=== PATIENT | male | born 1950 | race Caucasian/White ===

== ENCOUNTER 2016-10-17 16:58 | Inpatient (IN) | payer MEDICARE ==
[~2016-10-17] VITALS: Ht 175.3 cm; Wt 60.9 kg
[2016-10-17] VITALS (11 sets, daily range): BP systolic 101–134; BP diastolic 56–60; PULSE 78–93; RESP 16–19; TEMP 98.1–98.5; O2SAT 93–100
[2016-10-17] MEDS ORDERED: SODIUM CHLOR 0.9% 1000 ML INJ 1,000 ML IV SCH (17:16)
--- NOTE | 2016-10-17 17:29 | PD ---
HPI Chief Complaint: GI Complaint Time Seen by Provider: 17:16 Travel History International Travel<30 days: No Contact w/Intl Traveler<30days: No Traveled to known affect area: No History of Present Illness HPI Patient is a 65 year old male with hx of pancreatic cancer and lung cancer who presents to the emergency room with c/o of GI bleed. Patient reports that he is here from [facility] on vacation for the whole month. Reports that he felt fine all day yesterday. Reports that he slept in bed all day today as he was feeling weak. Reports that he has history of pancreatic cancer with mets to his lungs diagnosed 2 years ago. Reports that his lung cancer is advanced and there is no surgical intervention for him. He has undergone chemotherapy as well as radiation treatment for his cancer. Patient is being treated by Dr. Langford in [facility] at [facility]. Patient reports that prior to coming to the emergency room , he began to feel nauseous. Patient reports that he began to vomit and vomited bright red blood. Patient also reports that he has noticed dark melanotic stools. Reports that has been feeling light headed and dizzy. PFSH Past Medical History Chemotherapy: Yes Diabetes: Yes Respiratory: Yes (COPD, LUNG CA) Social History Tobacco Use: No Allergies-Medications (Allergen,Severity, Reaction): Coded Allergies: No Known Allergies (Unverified , 10/17/16) Reported Meds & Prescriptions Reported Meds & Active Scripts Active Reported Oxycodone (Oxycodone HCl) 10 Mg Tab 10 Mg PO Q6HR Creon (Pancrelipase) 36,000-114,000-180,000 Units Cap 2 Cap PO TID Take with each meal Xopenex Hfa 15 GM Inh (Levalbuterol 15 GM Inh) 45 Mcg/Act Aer 2 Puff INH Q4HR PRN Shake well before using. (1 puff = 45 mcg) Spiriva Handihaler (Tiotropium Inh) 18 Mcg Cap 18 Mcg INH DAILY 1 capsule = 18 mcg Zocor (Simvastatin) 20 Mg Tab 20 Mg PO DAILY One Daily (Multiple Vitamin) 1 Tab 1 Tab PO DAILY Omeprazole 20 Mg Tab 20 Mg PO DAILY Glucophage XR (Metformin HCl) 500 Mg Gurpreet 500 Mg PO DAILY With evening meal Carac (Fluorouracil (Topical)) 0.5 % Cre 1 Applic TOP BID Apply to flaky lesion on the scalp until erosion of the lesion occurs Daliresp (Roflumilast) 500 Mcg Tab 500 Mcg PO DAILY Celexa (Citalopram Hydrobromide) 40 Mg Tab 40 Mg PO DAILY Advair Diskus Inh (Fluticasone-Salmeterol Inh) 500-50 Mcg/Blist Aer 1 Puff INH BID Rinse mouth after use. Review of Systems General / Constitutional: No: Fever Eyes: No: Visual changes HENT: No: Headaches Cardiovascular: No: Chest Pain or Discomfort Respiratory: Positive: Cough, Shortness of Breath Gastrointestinal: Positive: Nausea, Vomiting, Abdominal Pain, Hematemesis, No : Hematochezia Genitourinary: No: Dysuria Musculoskeletal: No: Pain Skin: No Rash Neurologic: No: Weakness Psychiatric: No: Depression Endocrine: No: Polydipsia Hematologic/Lymphatic: No: Easy Bruising Physical Exam Narrative GENERAL: Moderate distress SKIN: Warm and dry. Patient jaundiced appearing HEAD: Atraumatic. Normocephalic. EYES: Pupils equal and round. No scleral icterus. No injection or drainage. ENT: No nasal bleeding or discharge. Mucous membranes pink and moist. NECK: Trachea midline. No JVD. CARDIOVASCULAR: Regular rate and rhythm. No murmur appreciated. RESPIRATORY: No accessory muscle use. Clear to auscultation. Breath sounds equal bilaterally. GASTROINTESTINAL: Abdomen soft, non-tender, nondistended. Patient with melanotic stool, grossly heme positive MUSCULOSKELETAL: No obvious deformities. No clubbing. No cyanosis. No edema. NEUROLOGICAL: Awake and alert. No obvious cranial nerve deficits. Motor grossly within normal limits. Normal speech. PSYCHIATRIC: Appropriate mood and affect; insight and judgment normal. Data Data Last Documented VS Vital Signs Date Time Temp Pulse Resp B/P Pulse Ox O2 Delivery O2 Flow Rate FiO2 10/17/16 17:23 19 95 Nasal Cannula 2 10/17/16 17:03 98.1 93 134/58 Orders Electrocardiogram (10/17/16 ) Complete Blood Count With Diff (10/17/16 17:16) Comprehensive Metabolic Panel (10/17/16 17:16) Lipase (10/17/16 17:16) Prothrombin Time / Inr (Pt) (10/17/16 17:16) Act Partial Throm Time (Ptt) (10/17/16 17:16) Urinalysis - C+S If Indicated (10/17/16 17:16) Type And Screen (10/17/16 17:16) Chest, Single Ap (10/17/16 17:16) Ecg Monitoring (10/17/16 17:16) Iv Access Insert/Monitor (10/17/16 17:16) Ng Gastric Tube Insert/Monitor (10/17/16 17:16) Oximetry (10/17/16 17:16) Ondansetron Inj (Zofran Inj) (10/17/16 17:30) Sodium Chlor 0.9% 1000 Ml Inj (Ns 1000 M (10/17/16 17:16) Sodium Chloride 0.9% Flush (Ns Flush) (10/17/16 17:30) Pantoprazole Inj (Protonix Inj) (10/17/16 17:30) Pantoprazole Inj (Protonix Inj) (10/17/16 17:30) Lactic Acid Sepsis Protocol (10/17/16 17:16) B-Type Natriuretic Peptide (10/17/16 17:47) Ckmb (Isoenzyme) Profile (10/17/16 17:47) Troponin I (10/17/16 17:47) Admit Order (Ed Use Only) (10/17/16 18:42) Labs Laboratory Tests Test 10/17/16 17:40 White Blood Count 11.2 TH/MM3 Red Blood Count 4.09 MIL/MM3 Hemoglobin 11.4 GM/DL Hematocrit 33.6 % Mean Corpuscular Volume 82.3 FL Mean Corpuscular Hemoglobin 27.8 PG Mean Corpuscular Hemoglobin 33.8 % Concent Red Cell Distribution Width 21.4 % Platelet Count 236 TH/MM3 Mean Platelet Volume 7.4 FL Neutrophils (%) (Auto) 83.0 % Lymphocytes (%) (Auto) 7.4 % Monocytes (%) (Auto) 7.5 % Eosinophils (%) (Auto) 1.7 % Basophils (%) (Auto) 0.4 % Neutrophils # (Auto) 9.3 TH/MM3 Lymphocytes # (Auto) 0.8 TH/MM3 Monocytes # (Auto) 0.8 TH/MM3 Eosinophils # (Auto) 0.2 TH/MM3 Basophils # (Auto) 0.0 TH/MM3 CBC Comment AUTO DIFF Differential Comment AUTO DIFF CONFIRMED Platelet Estimate NORMAL Platelet Morphology Comment NORMAL Ovalocytes 1+ Prothrombin Time 13.8 SEC Prothromb Time International 1.2 RATIO Ratio Activated Partial 28.5 SEC Thromboplast Time Sodium Level 139 MEQ/L Potassium Level 4.4 MEQ/L Chloride Level 104 MEQ/L Carbon Dioxide Level 26.8 MEQ/L Anion Gap 8 MEQ/L Blood Urea Nitrogen 15 MG/DL Creatinine 0.88 MG/DL Estimat Glomerular Filtration 87 ML/MIN Rate Random Glucose 108 MG/DL Lactic Acid Level 2.4 mmol/L Calcium Level 7.8 MG/DL Total Bilirubin 3.2 MG/DL Aspartate Amino Transf 156 U/L (AST/SGOT) Alanine Aminotransferase 240 U/L (ALT/SGPT) Alkaline Phosphatase 358 U/L Total Creatine Kinase 27 U/L Troponin I LESS THAN 0.02 NG/ML B-Type Natriuretic Peptide 110 PG/ML Total Protein 5.8 GM/DL Albumin 2.4 GM/DL Lipase 31 U/L Blood Type A NEGATIVE Antibody Screen NEGATIVE Blood Bank Comment Crossmatch Leukocyte-Reduced Red Blood Cells MDM Medical Decision Making Medical Screen Exam Complete: Yes Emergency Medical Condition: Yes Interpretation(s) EKG: NSR at 86bpm, qt/qtc: 341/385, no acute st seg chagnes, gt wave inversion V1-V4 Vital Signs Date Time Temp Pulse Resp B/P Pulse Ox O2 Delivery O2 Flow Rate FiO2 10/17/16 17:23 19 95 Nasal Cannula 2 10/17/16 17:17 19 10/17/16 17:03 98.1 93 19 134/58 95 Differential Diagnosis GI bleed, gastric ulcer, gastritis, metastatic disease, electrolyte abnormality Narrative Course Patient is a 65-year-old male with history of metastatic pancreatic cancer to the lungs, presents to emergency room with GI bleed. Patient reports that he has been feeling weak all day, reports that prior to coming to the emergency room, he felt nauseous and began vomiting bright red blood. Patient reports that he has had episodes of melena as well. Denies history of GI been in the past. Patient was hypotensive upon evaluation by EMS, patient was given an 800 mL bolus of IV fluids and blood pressure now 134/58. VSS Placed on a cardiac catheterization technician. IV placed, labs ordered as well as type and screen. Protonix bolus as well as gtt ordered. Gastric lavage ordered as well Patient hypotensive with systolic blood pressure in the 90s, 1 unit of blood ordered for patient. Case reviewed with with GI, request that patient be kept nothing by mouth for EGD tomorrow morning. Case reviewed with Dr. Sorto who accepts case under Dr. Chaudhry. All labs and all studies and plan of care was reviewed with patient and family in detail. Patient is a FULL CODE Critical Care Narrative Aggregate critical care time was 45 minutes. Time to perform other separately billable procedures was not included in the critical care time. My time did not include minutes spent treating any other patients simultaneously or on activities that did not directly contribute to the patient's treatment. The services I provided to this patient were to treat and/or prevent clinically significant deterioration that could result in: , decompensation, deterioration I provided critical care services requiring my management, as noted below: Chart data review, documentation time, medication orders and management, vital sign assessments/reviewing monitor data, ordering and reviewing lab tests, ordering and interpreting/reviewing x-rays and diagnostic studies, care of the patient and discussion of the patient with the admitting physicians. Diagnosis Primary Impression: GI bleed Qualified Code: K92.0 - Gastrointestinal hemorrhage with hematemesis Admitting Information Admitting Physician Requests: Admit Scripts Pantoprazole (Protonix)40 Mg Tab40 Mg PO DAILY #30 TAB Ref 0 Prov:Adry Sorto MD R2 10/19/16 Consuelo Sutton DO Oct 17, 2016 17:29
[2016-10-17] MEDS ORDERED: ONDANSETRON HCL 4 MG/2 ML VIAL IVP ONE (17:30)
[2016-10-17] MEDS ORDERED: PANTOPRAZOLE INJ 80 MG in SODIUM CHLORIDE 0.9% INJ 35 ML IV ONE (17:30)
[2016-10-17] MEDS ORDERED: PANTOPRAZOLE INJ 80 MG in SODIUM CHLORIDE 0.9% INJ 100 ML IV SCH (17:30)
[2016-10-17] MEDS ORDERED: SODIUM CHLORIDE 0.9% FLUSH 5 ML FLUSH IVF PRN (17:30)
[2016-10-17] MEDS ORDERED: ASPI1TAB91 PO (17:33)
[2016-10-17] MEDS ORDERED: CARA0.5C TOP (17:33)
[2016-10-17] MEDS ORDERED: XOPEAER4 INH (17:33)
[2016-10-17] MEDS ORDERED: CARD120T4 PO (17:33)
[2016-10-17] MEDS ORDERED: GLUCTAB PO (17:33)
[2016-10-17] MEDS ORDERED: SPIRCAP INH (17:33)
[2016-10-17] MEDS ORDERED: MULT-207 PO (17:33)
[2016-10-17] MEDS ORDERED: ROFL1TAB2 PO (17:33)
[2016-10-17] MEDS ORDERED: PANC3600 PO (17:33)
[2016-10-17] MEDS ORDERED: ZOCO20TA PO (17:33)
[2016-10-17] MEDS ORDERED: CELE40TA PO (17:33)
[2016-10-17] MEDS ORDERED: OXYC-395 PO (17:33)
[2016-10-17] MEDS ORDERED: ADVA500A INH (17:33)
[2016-10-17] MEDS ORDERED: OMEP20TA PO (17:33)
[2016-10-17 18:26] LABS: AUTOMATED NEUTROPHIL # 9.3 TH/MM3 (1.8-7.7); BASOPHIL % 0.4 % (0.0-2.0); EOSINOPHIL # 0.2 TH/MM3 (0-0.4); EOSINOPHIL % 1.7 % (0.0-4.0); HEMATOCRIT 33.6 % (39.0-51.0); LYMPH % 7.4 % (9.0-44.0); LYMPHOCYTE # 0.8 TH/MM3 (1.0-4.8); MEAN CELL VOLUME 82.3 FL (80.0-100.0); MEAN CORPUSCULAR HEMOGLOBIN 27.8 PG (27.0-34.0); MEAN CORPUSCULAR HGB CONC 33.8 % (32.0-36.0); MONO % 7.5 % (0.0-8.0); PLATELET COUNT 236 TH/MM3 (150-450); RED BLOOD COUNT 4.09 MIL/MM3 (4.50-5.90); RED CELL DISTRIBUTION WIDTH 21.4 % (11.6-17.2); WHITE BLOOD COUNT 11.2 TH/MM3 (4.0-11.0)
[2016-10-17 18:28] LABS: HEMO FLAGS AUTO DIFF
[2016-10-17 18:40] LABS: APTT (PATIENT) 28.5 SEC (24.3-30.1); INTERNATIONAL NORMALIZED RATIO 1.2 RATIO; PROTHROMBIN TIME - PATIENT 13.8 SEC (9.8-11.6)
[2016-10-17 18:41] LABS: ANION GAP 8 MEQ/L (5-15); AST (GOT) 156 U/L (15-37); BICARBONATE 26.8 MEQ/L (21.0-32.0); BLOOD UREA NITROGEN 15 MG/DL (7-18); CHLORIDE 104 MEQ/L (98-107); GLOMERULAR FILTRATION RATE 87 ML/MIN (>89); POTASSIUM 4.4 MEQ/L (3.5-5.1); SODIUM (NA) 139 MEQ/L (136-145)
[2016-10-17 18:44] LABS: ALKALINE PHOSPHATASE 358 U/L (45-117); ALT (GPT) 240 U/L (12-78); TOTAL BILIRUBIN ADULT 3.2 MG/DL (0.2-1.0)
[2016-10-17] MEDS ORDERED: SODIUM CHLOR 0.9% 250 ML INJ 250 ML IV ONE (18:45)
--- NOTE | 2016-10-17 18:51 | RADRPT ---
EXAM DATE/TIME: 10/17/2016 17:37 [facility] COMPARISON: No previous studies available for comparison. INDICATIONS : Chronic cough MEDICAL HISTORY : None. SURGICAL HISTORY : None. ENCOUNTER: Initial ACUITY: 1 day PAIN SCORE: 0/10 LOCATION: Bilateral chest FINDINGS: There is severe bullous emphysema. Densities overlying the upper lungs are believed to represent skin folds. No definite pneumothorax. There is basilar mostly linear opacity at the lung bases probably r epresenting atelectasis and scarring with some focal consolidation also at the right base. Blunting o f the costophrenic angles also present. CONCLUSION: 1. Severe bullous emphysema. Basilar scarring with questionable acute infiltrate right lung base. No prior study for comparison. Small right effusion versus scarring. Left-sided port or central line pre sent with tip in superior vena cava. Chidi Diaz MD on October 17, 2016 at 18:46 Board Certified Radiologist. This report was verified electronically.
[2016-10-17 18:54] LABS: OVALOCYTES 1+ (NORMAL); PLATELET ESTIMATE SMEAR NORMAL (NORMAL); PLATELET MORPHOLOGY NORMAL (NORMAL); SCAN/DIFF AUTO DIFF CONFIRMED
[2016-10-17 19:27] LABS: CREATINE KINASE 27 U/L (39-308)
--- NOTE | 2016-10-17 19:57 | HHI.HP ---
[facility] Service Family Medicine Primary Care Physician Non-Staff Admission Diagnosis GI BLEED Diagnoses: International Travel<30 Days: No Contact w/Intl Traveler<30days: No Known Affected Area: No History of Present Illness Patient is a 65-year-old male with past medical history significant for pancreatic cancer with lung metastasis, COPD presenting due to bright red vomiting. This afternoon around 1 PM patient experienced 2 episodes of vomiting bright red blood with clots. He denies any chest pain associated with vomiting. He also experienced bright red blood in his stools. He has experienced some associated abdominal discomfort. He feels fatigued but denies feeling lightheaded or dizzy. He denies this ever happening before. Patient was diagnosed with pancreatic cancer in 2014 and has been undergoing radiation and chemotherapy treatments. Cancer was found to have metastasized to his lungs. His last chemotherapy treatment was in June or July and his last radiation treatment was in the summer. Patient is being treated by Dr. Langford in [facility] at [facility]. He is currently taking a break from cancer treatments while here on vacation from [facility]. He will not miss any treatments while in the hospital. He has a history of COPD and is short of breath at baseline. He uses oxygen at home, 2 L nasal cannula. (Adry Sorto MD R2) Review of Systems Constitutional: COMPLAINS OF: Diaphoretic episodes Eyes: DENIES: Double Vision Ears, nose, mouth, throat: DENIES: Vertigo Respiratory: COMPLAINS OF: Cough, Shortness of breath Cardiovascular: COMPLAINS OF: Lower Extremity Edema, DENIES: Chest pain, Syncope Gastrointestinal: COMPLAINS OF: Abdominal pain, Bloody stools, Nausea, Vomiting Genitourinary: DENIES: Dysuria Musculoskeletal: COMPLAINS OF: Muscle aches Integumentary: DENIES: Rash Neurologic: DENIES: Headache Psychiatric: DENIES: Mood changes (Adry Sorto MD R2) Past Family Social History Past Medical History Pancreatic Cancer diagnosed November 2014 COPD DM type 2 Hyperlipidemia Tachycardia Past Surgical History Appendectomy as a child Nerve entrapment of left hand, required surgery Pancreatic stent, preformed twice Biopsy of lung x2 Port placement in 2014 Reported Medications Reported Meds & Active Scripts Active Reported Oxycodone (Oxycodone HCl) 10 Mg Tab 10 Mg PO Q6HR Creon (Pancrelipase) 36,000-114,000-180,000 Units Cap 2 Cap PO TID Take with each meal Cardizem (Diltiazem HCl) 120 Mg Tab 120 Mg PO DAILY Xopenex Hfa 15 GM Inh (Levalbuterol 15 GM Inh) 45 Mcg/Act Aer 2 Puff INH Q4HR PRN Shake well before using. (1 puff = 45 mcg) Spiriva Handihaler (Tiotropium Inh) 18 Mcg Cap 18 Mcg INH DAILY 1 capsule = 18 mcg Zocor (Simvastatin) 20 Mg Tab 20 Mg PO DAILY One Daily (Multiple Vitamin) 1 Tab 1 Tab PO DAILY Omeprazole 20 Mg Tab 20 Mg PO DAILY Glucophage XR (Metformin HCl) 500 Mg Gurpreet 500 Mg PO DAILY With evening meal Carac (Fluorouracil (Topical)) 0.5 % Cre 1 Applic TOP BID Apply to flaky lesion on the scalp until erosion of the lesion occurs Daliresp (Roflumilast) 500 Mcg Tab 500 Mcg PO DAILY Celexa (Citalopram Hydrobromide) 40 Mg Tab 40 Mg PO DAILY Aspirin Adult Low Strength (Aspirin) 81 Mg Tabdr 81 Mg PO DAILY Advair Diskus Inh (Fluticasone-Salmeterol Inh) 500-50 Mcg/Blist Aer 1 Puff INH BID Rinse mouth after use. (Ardy Sorto MD R2) Allergies: Coded Allergies: No Known Allergies (Unverified , 10/17/16) Active Ordered Medications Inpatient Medications Amylase/Lipase/ Protease (Creon 2476-120) 2 cap TID PO Digestive Aid; Start 10/18/16 at 09:00 Budesonide/ Formoterol Fumarate (Symbicort 160-4.5 Inh) 2 puff BID INH Last administered on 10/17/16 21:21; Start 10/17/16 at 21:00 Citalopram Hydrobromide (CeleXA) 40 mg DAILY PO ; Start 10/18/16 at 09:00 IV Flush (NS Flush) 2 ml UNSCH PRN FLUSH FLUSH AFTER USING IV ACCESS; Start 10/17/16 at 20:00 IV Flush 2 ml 2 ml BID FLUSH ; Start 10/17/16 at 21:00 Multivitamins (Theragran) 1 tab DAILY PO ; Start 10/18/16 at 09:00 Ondansetron HCl 4 mg 4 mg ONCE ONCE IVP Last administered on 10/17/16 17:30; Start 10/17/16 at 17:30; Stop 10/17/16 at 17:31; Status DC Oxycodone HCl (Roxicodone) 10 mg Q6HR PO ; Start 10/18/16 at 00:00 Pantoprazole Sodium (Protonix Inj) 40 mg BID IV ; Start 10/17/16 at 21:00 Pantoprazole Sodium (Protonix) 20 mg DAILY PO ; Start 10/18/16 at 09:00; Stop 10/18/16 at 09:00; Status DC Pantoprazole Sodium 80 mg/ Sodium Chloride 100 ml @ 10 mls/hr Q10H IV Last administered on 10/17/16 17:30; Start 10/17/16 at 17:30; Stop 10/17/16 at 20:14; Status DC Pravastatin Sodium (Pravachol) 40 mg DAILY PO CM; Start 10/18/16 at 09:00 Roflumilast (Daliresp) 500 mcg DAILY PO ; Start 10/18/16 at 09:00 Sodium Chloride (NS 1000 ml Inj) 1,000 ml @ 125 mls/hr Q8H IV Last administered on 10/17/16 20:32; Start 10/17/16 at 19:58 Sodium Chloride (NS 250 ml Inj) 250 ml @ 15 mls/hr ONCE ONCE IV Last administered on 10/17/16 21:00; Start 10/17/16 at 18:45; Stop 10/18/16 at 11:24 Tiotropium [place] (Spiriva Inh) 18 mcg DAILY INH ; Start 10/18/16 at 09:00 Family History Mother:DM, living 86 Father: Heart problems, at 73 Social History Currently lives in [facility]. 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 SKIN: No rashes, ecchymoses or lesions. Cool and dry. Port present in upper left chest. HEAD: Atraumatic. Normocephalic. No temporal or scalp tenderness. EYES: Pupils equal round and reactive. Extraocular motions intact. No scleral icterus. No injection or drainage. ENT: Nose without bleeding, purulent drainage or septal hematoma. Throat without erythema, tonsillar hypertrophy or exudate. Uvula midline. Airway patent. NECK: Trachea midline. No JVD or lymphadenopathy. Supple, nontender, no meningeal signs. CARDIOVASCULAR: Regular rate and rhythm without murmurs, gallops, or rubs. RESPIRATORY: Poor air movement. Decreased breath sounds at lung bases. Occasional expiratory wheezes. GASTROINTESTINAL: Abdomen soft, non-tender, nondistended. No hepato-splenomegaly , or palpable masses. No guarding. Positive bowel sounds MUSCULOSKELETAL: Extremities without clubbing, cyanosis, or edema. No joint tenderness, effusion, or edema noted. No calf tenderness. Negative Homans sign bilaterally. NEUROLOGICAL: Awake and alert. Cranial nerves II through XII intact. Motor and sensory grossly within normal limits. Five out of 5 muscle strength in all muscle groups. Normal speech. Laboratory Laboratory Tests Test 10/17/16 17:40 White Blood Count 11.2 Red Blood Count 4.09 Hemoglobin 11.4 Hematocrit 33.6 Mean Corpuscular Volume 82.3 Mean Corpuscular Hemoglobin 27.8 Mean Corpuscular Hemoglobin 33.8 Concent Red Cell Distribution Width 21.4 Platelet Count 236 Mean Platelet Volume 7.4 Neutrophils (%) (Auto) 83.0 Lymphocytes (%) (Auto) 7.4 Monocytes (%) (Auto) 7.5 Eosinophils (%) (Auto) 1.7 Basophils (%) (Auto) 0.4 Neutrophils # (Auto) 9.3 Lymphocytes # (Auto) 0.8 Monocytes # (Auto) 0.8 Eosinophils # (Auto) 0.2 Basophils # (Auto) 0.0 CBC Comment AUTO DIFF Differential Comment AUTO DIFF CONFIRMED Platelet Estimate NORMAL Platelet Morphology Comment NORMAL Ovalocytes 1+ Prothrombin Time 13.8 Prothromb Time International 1.2 Ratio Activated Partial 28.5 Thromboplast Time Sodium Level 139 Potassium Level 4.4 Chloride Level 104 Carbon Dioxide Level 26.8 Anion Gap 8 Blood Urea Nitrogen 15 Creatinine 0.88 Estimat Glomerular Filtration 87 Rate Random Glucose 108 Lactic Acid Level 2.4 Calcium Level 7.8 Total Bilirubin 3.2 Aspartate Amino Transf 156 (AST/SGOT) Alanine Aminotransferase 240 (ALT/SGPT) Alkaline Phosphatase 358 Total Creatine Kinase 27 Troponin I LESS THAN 0.02 B-Type Natriuretic Peptide 110 Total Protein 5.8 Albumin 2.4 Lipase 31 Blood Type A NEGATIVE Antibody Screen NEGATIVE Crossmatch Leukocyte-Reduced Red Blood Cells Blood Bank Comment (Adry Sorto MD R2) Result Diagram: 10/17/16173910/17/161739 Assessment and Plan Assessment and Plan Patient is a 65-year-old male with past medical history significant for pancreatic cancer with lung metastasis, COPD presenting due to bright red vomiting. Code Status Full Discussed Condition With dw Dr. Sutton w Medicine Team (Adry Sorto MD R2) Attending Attestation THIS CASE WAS DISCUSSED WITH THE RESIDENT PHYSICIANS. I HAVE REVIEWED THE RECORD AND AGREE WITH THE ABOVE NOTE AND PLAN OF CARE WAS DISCUSSED. I HAVE AUTHORIZED THE ORDER FOR ADMISSION TO AN IN-PATIENT STATUS. (Davey Chaudhry MD) Problem List: (1) GI bleed Status: Acute Plan: Patient reports 2 episodes of bright red vomiting earlier today along with grossly bloody stools. On admission H&H stable at 11.4 and 33.6. -GI consulted by ED physician, appreciate recommendations and intervention -Patient to remain nothing by mouth in anticipation of EGD tomorrow morning -Will monitor H&HQ 6 hours -Protonix 40 mg IV BID -Monitor Q6hr H&H's,on admission stable at 11.4 and 33.6 respectively -Continue to monitor I's and O's -Monitor patient for blood loss -Consider NG-tube placement (2) Pancreatic cancer metastasized to lung Status: Acute Plan: Patient reports history of pancreatic cancer diagnosed in November 2014, now with lung metastasis. Patient is undergoing chemotherapy along with radiation therapy in [place]. He is currently taking a break from cancer treatments and will not miss any cancer treatments while in the hospital -Consider heme/onc consulted after GI bleed is stable -Continue home Creon -Pain management with oxycodone 10 mg po Q6hrs, morphine prn breakthrough (3) FEN/PPX Status: Acute Plan: Fluids: Normal saline at 125 ML/HR Electrolytes: Calculated protein corrected calcium based on albumin 9.2, continue to monitor electrolytes and replete as needed Nutrition: Patient currently nothing by mouth in anticipation of EGD in the morning by GI DVT PPX: Contraindicated as patient currently has GI bleed GI PPX: Protonix 40 mg IV BID Chronic medical problems: Type 2 diabetes: Low-dose insulin sliding scale Hyperlipidemia: Pravastatin 40 mg po daily COPD: Daliresp, Spiriva, Symbicort, DuoNeb's prn SOB Depression: Continue Celexa (Adry Sorto MD R2) Physician Certification 2 Midnight Certification Type: Admission for Inpatient Services Order for Inpatient Services The services are ordered in accordance with Medicare regulations or non- Medicare payer requirements, as applicable. In the case of services not specified as inpatient-only, they are appropriately provided as inpatient services in accordance with the 2-midnight benchmark. Estimated LOS (days): 2 days is the estimated time the patient will need to remain in the hospital, assuming treatment plan goals are met and no additional complications. Post-Hospital Plan: Home (Adry Sorto MD R2) Problem Qualifiers (1) GI bleed: Qualified Code: K92.0 - Gastrointestinal hemorrhage with hematemesis Adry Sorto MD R2 Oct 17, 2016 19:57 Davey Chaudhry MD Oct 18, 2016 11:50
[2016-10-17] MEDS ORDERED: SODIUM CHLORIDE 0.9% FLUSH 5 ML FLUSH FLUSH PRN (20:00)
[2016-10-17 20:20] LABS: LACTIC ACID GHOST NOT REPORTABLE
[2016-10-17] MEDS: SODIUM CHLOR 0.9% 1000 ML INJ 1,000 ML IV SCH (20:32)
[2016-10-17] MEDS: SODIUM CHLORIDE 0.9% FLUSH 5 ML FLUSH FLUSH SCH (21:00)
[2016-10-17] MEDS: PANTOPRAZOLE SODIUM 40 MG VIAL IV SCH (21:00)
[2016-10-17] MEDS: BUDESONIDE-FORMOTEROL 160/4.5 MCG INHALER INH SCH (21:21)
--- NOTE | 2016-10-17 21:23 | RADRPT ---
EXAM DATE/TIME: 10/17/2016 20:28 [facility] COMPARISON: No previous studies available for comparison. INDICATIONS : Abdomen pain; evaluate for Gastrointestinal bleed. ORAL CONTRAST: No oral contrast ingested. RADIATION DOSE: 9.96 CTDIvol (mGy) MEDICAL HISTORY : Carcinoma, pancreas. Carcinoma, lung. SURGICAL HISTORY : None. ENCOUNTER: Initial ACUITY: 1 day PAIN SCALE: 5/10 LOCATION: Bilateral abdomen pain. TECHNIQUE: Volumetric scanning of the abdomen and pelvis was performed. Using automated exposure control and ad justment of the mA and/or kV according to patient size, radiation dose was kept as low as reasonably achievable to obtain optimal diagnostic quality images. FINDINGS: There is patchy airspace consolidation at the right lung base and small right pleural effusion. Moder ate emphysema at the lung bases. There is some pneumobilia in the anterior aspect of the liver. Gallbladder is not visualized. The mcclellan creas is atrophic. There are calcifications around the head of the pancreas. Reportedly there is a hi story of pancreatic carcinoma. Spleen, adrenals, kidneys demonstrate no acute findings. No bowel obstruction. No free air or significant free fluid. No acute bony abnormalities. CONCLUSION: 1. Basilar lung consolidation in the right lower lobe most characteristic of pneumonia or aspiration with small right pleural effusion. Moderate emphysema at the lung bases. 2. Pneumobilia. Gallbladder not visualized. Pancreas very atrophic. No free air or free fluid. No bow el obstruction. Chidi Diaz MD on October 17, 2016 at 21:17 Board Certified Radiologist. This report was verified electronically.
[2016-10-17] MEDS ORDERED: GLUCAGON 1 MG/ML VIAL OTHER PRN (23:30)
[2016-10-17] MEDS ORDERED: DEXTROSE 50% IN WATER 50 ML VIAL(D50) IV PUSH PRN (23:30)
[2016-10-17 23:39] LABS: HEMATOCRIT 31.1 % (39.0-51.0)
[2016-10-17 23:40] LABS: REVIEW FLAG FINAL
[2016-10-18] VITALS (14 sets, daily range): BP systolic 98–123; BP diastolic 56–78; PULSE 59–86; RESP 16–27; TEMP 98.3–98.7; O2SAT 92–99
[2016-10-18] MEDS ORDERED: MORPHINE SULFATE 4 MG/ML INJ IV PUSH PRN (01:00)
[2016-10-18] MEDS ORDERED: RESP: ALBUTEROL 2.5 MG/IPRATROPIUM 0.5 MG NEB (PRN) NEB (01:00)
[2016-10-18] MEDS: SODIUM CHLOR 0.9% 1000 ML INJ 1,000 ML IV SCH ×3 (03:52→19:58)
[2016-10-18] MEDS: INSULIN ASPART SUPPLEMENTAL SCALE SQ SCH ×4 (06:02→20:07)
[2016-10-18 06:05] LABS: AUTOMATED NEUTROPHIL # 4.6 TH/MM3 (1.8-7.7); BASOPHIL % 0.8 % (0.0-2.0); EOSINOPHIL # 0.1 TH/MM3 (0-0.4); EOSINOPHIL % 2.3 % (0.0-4.0); HEMATOCRIT 28.2 % (39.0-51.0); HEMO FLAGS DIFF FINAL; LYMPH % 12.2 % (9.0-44.0); LYMPHOCYTE # 0.8 TH/MM3 (1.0-4.8); MEAN CELL VOLUME 80.8 FL (80.0-100.0); MEAN CORPUSCULAR HEMOGLOBIN 28.2 PG (27.0-34.0); MONO % 11.4 % (0.0-8.0); NEUT % 73.3 % (16.0-70.0); PLATELET COUNT 194 TH/MM3 (150-450); RED BLOOD COUNT 3.49 MIL/MM3 (4.50-5.90); RED CELL DISTRIBUTION WIDTH 19.9 % (11.6-17.2); WHITE BLOOD COUNT 6.2 TH/MM3 (4.0-11.0)
[2016-10-18 06:30] LABS: ALT (GPT) 164 U/L (12-78); ANION GAP 7 MEQ/L (5-15); AST (GOT) 77 U/L (15-37); BICARBONATE 23.6 MEQ/L (21.0-32.0); BLOOD UREA NITROGEN 20 MG/DL (7-18); CHLORIDE 109 MEQ/L (98-107); GLOMERULAR FILTRATION RATE 160 ML/MIN (>89); POTASSIUM 4.2 MEQ/L (3.5-5.1); SODIUM (NA) 140 MEQ/L (136-145)
[2016-10-18 06:32] LABS: ALKALINE PHOSPHATASE 265 U/L (45-117); CALCIUM-PROTEIN CORRECTED 9.2 MG/DL (8.5-10.1); TOTAL BILIRUBIN ADULT 2.2 MG/DL (0.2-1.0)
--- NOTE | 2016-10-18 08:58 | PD.CONS ---
HPI History of Present Illness This is a 66 year old male with past medical history significant for pancreatic cancer with lung metastasis ( diagnosed in 2014 and has been undergoing radiation and chemotherapy treatments. His last chemotherapy treatment was in June or July and his last radiation treatment was in the summer. Patient is being treated by Dr. Langford in [facility]. He is currently taking a break from cancer treatments while here on vacation from [facility]), COPD, DM, permanent pancreatic stent presents with acute onset of bright red vomiting and bright red rectal bleed that started yesterday afternoon. Patient reports 2 episodes of vomiting bright red blood with clots, but non after that. He reports bright red blood in his stools with every BM, last time was 3 am last night. He has experienced some associated abdominal discomfort and fatigue. He has a history of COPD and is short of breath at baseline. He uses oxygen at home, 2 L nasal cannula. No previous history of this. last colonoscopy was 6 years ago, EGD was about 2 years ago. He takes Aspirin at home. Denies NSAIDs or alcohol. hgb 9.9 s/p one unit of blood. CT done 1. Basilar lung consolidation in the right lower lobe most characteristic of pneumonia or aspiration with small right pleural effusion. Moderate emphysema at the lung bases. 2. Pneumobilia. Gallbladder not visualized. Pancreas very atrophic. No free air or free fluid. No bowel obstruction. LFTs elevated, hepatitis panel pending. patient states, he had problems with gallbladder, but left it alone and it was felt he is not a surgical candidate. (Bre Gonzalez) PFSH Past Medical History Past Medical History Pancreatic Cancer with mets to lungs diagnosed November 2014 COPD DM type 2 Hyperlipidemia Tachycardia Past Surgical History Appendectomy as a child Nerve entrapment of left hand, required surgery Pancreatic stent, preformed twice Biopsy of lung x2 Port placement in 2014 EGD/colonoscopy (Bre Gonzalez) Coded Allergies: No Known Allergies (Unverified , 10/17/16) Medications Current Medications Medications (Trade) Dose Ordered Sig/Saloni Route Start Time Stop Time Status Last Admin (NS 250 ml Inj) 250 ml @ 15 mls/hr ONCE ONCE IV 10/17/16 18:45 10/18/16 11:24 10/17/16 21:00 (NS Flush) 2 ml UNSCH PRN FLUSH 10/17/16 20:00 IV Flush 2 ml 2 ml BID FLUSH 10/17/16 21:00 (NS 1000 ml Inj) 1,000 ml @ 125 mls/hr Q8H IV 10/17/16 19:58 10/18/16 03:52 (Protonix Inj) 40 mg BID IV 10/17/16 21:00 (CeleXA) 40 mg DAILY PO 10/18/16 09:00 (Theragran) 1 tab DAILY PO 10/18/16 09:00 (Roxicodone) 10 mg Q6HR PO 10/18/16 00:00 10/18/16 06:02 (Daliresp) 500 mcg DAILY PO 10/18/16 09:00 (Spiriva Inh) 18 mcg DAILY INH 10/18/16 09:00 (Symbicort 160-4.5 Inh) 2 puff BID INH 10/17/16 21:00 10/17/16 21:21 (Creon 24-76-120) 2 cap TID PO 10/18/16 09:00 (Pravachol) 40 mg DAILY PO 10/18/16 09:00 (D50w (Vial) Inj) 25 ml UNSCH PRN IV PUSH 10/17/16 23:30 (Glucagon Inj) 1 mg UNSCH PRN OTHER 10/17/16 23:30 (Morphine Inj) 3 mg Q3H PRN IV PUSH 10/18/16 01:00 Family History Mother:DM, living 86 Father: Heart problems, at 73 Social History 1.5 packs for 50 years Quit drinking in 1986, history of alcohol abuse Marijuana occasionally (Bre Gonzalez) Review of Systems Constitutional: COMPLAINS OF: Fatigue, DENIES: Fever Eyes: DENIES: Double Vision Ears, nose, mouth, throat: DENIES: Hoarseness Respiratory: COMPLAINS OF: Shortness of breath Gastrointestinal: COMPLAINS OF: Abdominal pain, Bloody stools, Nausea, Vomiting , Heartburn, Hematemesis, DENIES: Black stools, Constipation, Diarrhea, Difficulty Swallowing, Anorexia, Odynophagia, Swelling of Abdomen Genitourinary: DENIES: Hematuria Musculoskeletal: DENIES: Neck pain Integumentary: DENIES: Jaundice Hematologic/lymphatic: DENIES: Bruising Immunologic/allergic: DENIES: Eczema Neurologic: DENIES: Abnormal gait Psychiatric: DENIES: Anxiety (Bre Gonzalez) GI Exam Vitals I&O Vital Signs Date Time Temp Pulse Resp B/P Pulse Ox O2 Delivery O2 Flow Rate FiO2 10/18/16 06:47 16 10/18/16 06:18 71 16 116/56 98 Nasal Cannula 4 10/18/16 05:00 71 16 108/58 99 Nasal Cannula 4 10/18/16 03:00 72 16 106/57 99 Nasal Cannula 4 10/18/16 01:03 77 16 102/56 99 Nasal Cannula 4 10/18/16 00:07 98.5 76 16 98/58 99 Nasal Cannula 4 10/17/16 23:00 98.4 86 16 120/57 99 Nasal Cannula 4 10/17/16 22:16 99 Nasal Cannula 4.00 10/17/16 22:02 98.4 78 16 104/58 99 Nasal Cannula 4 10/17/16 22:00 79 16 104/60 99 Nasal Cannula 4 10/17/16 21:27 98.5 85 16 101/56 99 Nasal Cannula 4 10/17/16 21:15 98.5 80 16 104/57 99 Nasal Cannula 4 10/17/16 21:05 81 16 103/57 100 Nasal Cannula 4 10/17/16 20:58 98.4 81 16 104/58 99 Nasal Cannula 4 10/17/16 19:35 93 16 101/58 93 Nasal Cannula 4 10/17/16 17:23 19 95 Nasal Cannula 2 10/17/16 17:17 19 10/17/16 17:03 98.1 93 19 134/58 95 Imaging Last Impressions Abdomen/Pelvis CT 10/17/16 1847 Signed Impressions: Service Date/Time: Monday, October 17, 2016 20:28 - CONCLUSION: 1. Basilar lung consolidation in the right lower lobe most characteristic of pneumonia or aspiration with small right pleural effusion. Moderate emphysema at the lung bases. 2. Pneumobilia. Gallbladder not visualized. Pancreas very atrophic. No free air or free fluid. No bowel obstruction. Chidi Diaz MD Chest X-Ray 10/17/16 1716 Signed Impressions: Service Date/Time: Monday, October 17, 2016 17:37 - CONCLUSION: 1. Severe bullous emphysema. Basilar scarring with questionable acute infiltrate right lung base. No prior study for comparison. Small right effusion versus scarring. Left-sided port or central line present with tip in superior vena cava. Chidi Diaz MD Laboratory Test 10/17/16 10/17/16 10/17/16 10/18/16 17:40 20:10 23:30 05:41 White Blood Count 11.2 TH/MM3 6.2 TH/MM3 Red Blood Count 4.09 MIL/MM3 3.49 MIL/MM3 Hemoglobin 11.4 GM/DL 10.5 GM/DL 9.9 GM/DL Hematocrit 33.6 % 31.1 % 28.2 % Mean Corpuscular Volume 82.3 FL 80.8 FL Mean Corpuscular Hemoglobin 27.8 PG 28.2 PG Mean Corpuscular Hemoglobin 33.8 % 35.0 % Concent Red Cell Distribution Width 21.4 % 19.9 % Platelet Count 236 TH/MM3 194 TH/MM3 Mean Platelet Volume 7.4 FL 6.8 FL Neutrophils (%) (Auto) 83.0 % 73.3 % Lymphocytes (%) (Auto) 7.4 % 12.2 % Monocytes (%) (Auto) 7.5 % 11.4 % Eosinophils (%) (Auto) 1.7 % 2.3 % Basophils (%) (Auto) 0.4 % 0.8 % Neutrophils # (Auto) 9.3 TH/MM3 4.6 TH/MM3 Lymphocytes # (Auto) 0.8 TH/MM3 0.8 TH/MM3 Monocytes # (Auto) 0.8 TH/MM3 0.7 TH/MM3 Eosinophils # (Auto) 0.2 TH/MM3 0.1 TH/MM3 Basophils # (Auto) 0.0 TH/MM3 0.0 TH/MM3 CBC Comment AUTO DIFF DIFF FINAL Differential Comment AUTO DIFF CONFIRMED Platelet Estimate NORMAL Platelet Morphology Comment NORMAL Ovalocytes 1+ Prothrombin Time 13.8 SEC Prothromb Time International 1.2 RATIO Ratio Activated Partial 28.5 SEC Thromboplast Time Sodium Level 139 MEQ/L 140 MEQ/L Potassium Level 4.4 MEQ/L 4.2 MEQ/L Chloride Level 104 MEQ/L 109 MEQ/L Carbon Dioxide Level 26.8 MEQ/L 23.6 MEQ/L Anion Gap 8 MEQ/L 7 MEQ/L Blood Urea Nitrogen 15 MG/DL 20 MG/DL Creatinine 0.88 MG/DL 0.52 MG/DL Estimat Glomerular Filtration 87 ML/MIN 160 ML/MIN Rate Random Glucose 108 MG/DL 78 MG/DL Lactic Acid Level 2.4 mmol/L 2.2 mmol/L Calcium Level 7.8 MG/DL 8.0 MG/DL Total Bilirubin 3.2 MG/DL 2.2 MG/DL Aspartate Amino Transf 156 U/L 77 U/L (AST/SGOT) Alanine Aminotransferase 240 U/L 164 U/L (ALT/SGPT) Alkaline Phosphatase 358 U/L 265 U/L Total Creatine Kinase 27 U/L Troponin I LESS THAN 0.02 NG/ML B-Type Natriuretic Peptide 110 PG/ML Total Protein 5.8 GM/DL 5.1 GM/DL Albumin 2.4 GM/DL 2.2 GM/DL Lipase 31 U/L Blood Type A NEGATIVE A NEGATIVE Antibody Screen NEGATIVE Crossmatch Leukocyte-Reduced Red Blood Cells Blood Bank Comment Protein Corrected Calcium 9.2 MG/DL Physical Examination HEENT: Pupils round and reactive to light; normocephalic; atraumatic; no jaundice. Throat is clear. NECK: Neck is supple, no JVD, no lymphadenopathy. CHEST: Decreased breath sounds at lung bases. Expiratory wheezes CARDIAC: Regular rate and rhythm with no murmur gallop or rubs. ABDOMEN: Soft, nondistended, nontender; no hepatosplenomegaly; bowel sounds are present in all four quadrants. EXTREMITIES: No clubbing, cyanosis, or edema. SKIN: Normal; no rash; no jaundice. 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 (Bre Gonzalez) Assessment and Plan Plan - GI bleed- 2 episodes of bright red vomiting yesterday with bloody stools, no more vomiting but the continue to have bloody stools, last one was at 3 am. On admission hgb 11.4 ------>9.9 s/p one unit of blood Hemodynamically stable. last colonoscopy was 6 years ago, EGD was about 2 years ago. He takes Aspirin at home. Denies NSAIDs or alcohol. Noncontrasted CT done 1. Basilar lung consolidation in the right lower lobe most characteristic of pneumonia or aspiration with small right pleural effusion. Moderate emphysema at the lung bases. 2. Pneumobilia. Gallbladder not visualized. Pancreas very atrophic. No free air or free fluid. No bowel obstruction. LFTs elevated, hepatitis panel pending. patient states, he had problems with gallbladder, but left it alone and it was felt he is not a surgical candidate. - Elevated LFTs- Most likely due to chronic etiology compounded by pancreatic cancer and ill gall bladder. denies alcohol intake, hepatitis panel pending, Ct as above, of note he has issues with gallbladder but it was felt he is not a surgical candidate - Pancreatic cancer with lung metastasis ( diagnosed in 2014 and has been undergoing radiation and chemotherapy treatments. His last chemotherapy treatment was in June or July and his last radiation treatment was in the summer. Patient is being treated by Dr. Langford in [facility]. He is currently taking a break from cancer treatments while here on vacation from [facility] - Pancreatic stent- this is permanent - DM, COPD, per attending Plan: - Clear liquids - EGD/colonoscopy in am - NPO mn - Golytely today - Cont. PPI - Monitor hh - Transfuse as needed - Notify GI for active bleeding - Supportive care - Patient seen and examined by Dr. Daly and myself and this note is written on his behalf. (Bre Gonzalez) Physician Comments Seen and examined with [facility]ER, no active bleeding currently. EGD/Colonoscopy planned for tomorrow. Discussed with pt. and family at the bedside. Thank you ( Dong Ayoub MD) Bre Gonzalez Oct 18, 2016 08:58 Dong Ayoub MD Oct 18, 2016 16:21
[2016-10-18] MEDS ORDERED: PANTOPRAZOLE SOD 20 MG DELAYED RELEASE TAB PO SCH (09:00)
[2016-10-18] MEDS: SODIUM CHLORIDE 0.9% FLUSH 5 ML FLUSH FLUSH SCH ×2 (09:00→21:00)
[2016-10-18] MEDS: TIOTROPIUM BROMIDE 18 MCG INH INH SCH (09:02)
[2016-10-18] MEDS: BUDESONIDE-FORMOTEROL 160/4.5 MCG INHALER INH SCH ×2 (09:02→23:08)
[2016-10-18] MEDS: ROFLUMILAST 500 MCG TAB PO SCH (09:03)
[2016-10-18] MEDS: LIPASE/PROTEASE/AMYLASE (24,000/76,000/120,000) CAP PO SCH ×3 (09:03→18:21)
[2016-10-18] MEDS: CITALOPRAM HYDROBROMIDE 40 MG TAB PO SCH (09:03)
[2016-10-18] MEDS: PRAVASTATIN SOD 40 MG TAB PO SCH (09:03)
[2016-10-18] MEDS: MULTIVITAMIN TAB PO SCH (09:03)
[2016-10-18] MEDS: PANTOPRAZOLE SODIUM 40 MG VIAL IV SCH ×2 (09:22→20:07)
[2016-10-18 09:50] LABS: BLOOD, URINE NEG (NEG); COMMENT (UR) CULT NOT INDICATED; CULTURE IF INDICATED CULT NOT INDICATED; GLUCOSE,URINE NEG (NEG); KETONE, URINE 10 mg/dL (NEG); MUCUS URINE FEW /lpf (OCC); NITRITE,URINE NEG (NEG); PH, URINE 5.5 (5.0-8.5); SQUAMOUS EPITHELIAL CELL URINE <1 /hpf (0-5); URINE COLOR DARK-YELLOW (YELLW/STRAW)
[2016-10-18] MEDS ORDERED: CHLORHEXIDINE GLUCONATE 2 % 1 PACK (2 CLOTHS)(extra cloths) TOP PRN (11:15)
--- NOTE | 2016-10-18 11:49 | EKG ---
Date Performed: 10/17/2016 Time Performed: 17:30:40 PTAGE: 65 years EKG: Sinus rhythm RIGHT VENTRICULAR HYPERTROPHY AND ST-T CHANGE ABNORMAL ECG NO PREVIOUS TRACING DOCTOR: Javier Boswell Interpretating Date/Time 10/18/2016 11:45:35
--- NOTE | 2016-10-18 11:49 | HHI.FPPN ---
Subjective Remarks Patient had 3 bowel movements overnight were described as bright red with the last one being at 3 AM. He denies any new episodes of emesis. He states that he is feeling relatively well and he denies symptoms such as abdominal pain, nausea or vomiting, or lightheadedness/dizziness. He did receive 1 unit of packed red blood cells overnight and states that he does feel better today after receiving these. In summary, this is a 65-year-old male presenting to the emergency department with a one-day history of hematemesis and melena/hematochezia. He states that on the day of presentation he began experiencing some epigastric abdominal discomfort associated with fatigue. He then had 2 episodes of emesis that he described as bright red blood with some clots. He also then noticed red blood in his bowel movements as well. He does endorse fatigue and mild abdominal discomfort. He denies any fevers or chills. Denies any dizziness or lightheadedness. Denies any chest pain or palpitations. He has a past medical history significant for pancreatic cancer diagnosed in 2014 associated with lung metastasis for which he has undergone both radiation and chemotherapy treatments. He is being treated in [place] for this, and is currently on a treatment holiday with his last chemotherapy being in June 2016 and radiation being completed over the previous summer. Past Medical History Pancreatic Cancer diagnosed November 2014 COPD DM type 2 Hyperlipidemia Tachycardia Past Surgical History Appendectomy as a child Nerve entrapment of left hand, required surgery Pancreatic stent, preformed twice Biopsy of lung x2 Port placement in 2014 Family History Mother:DM, living 86 Father: Heart problems, at 73 Social History Currently lives in [facility]. 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 Quit drinking in 1986, history of alcohol abuse Marijuana occasionally Objective Vitals Vital Signs Date Time Temp Pulse Resp B/P Pulse Ox O2 Delivery O2 Flow Rate FiO2 10/18/16 09:42 95 Nasal Cannula 4.00 10/18/16 09:23 59 16 123/78 97 Nasal Cannula 4 10/18/16 06:47 16 10/18/16 06:18 71 16 116/56 98 Nasal Cannula 4 10/18/16 05:00 71 16 108/58 99 Nasal Cannula 4 10/18/16 03:00 72 16 106/57 99 Nasal Cannula 4 10/18/16 01:03 77 16 102/56 99 Nasal Cannula 4 10/18/16 00:07 98.5 76 16 98/58 99 Nasal Cannula 4 10/17/16 23:00 98.4 86 16 120/57 99 Nasal Cannula 4 10/17/16 22:16 99 Nasal Cannula 4.00 10/17/16 22:02 98.4 78 16 104/58 99 Nasal Cannula 4 10/17/16 22:00 79 16 104/60 99 Nasal Cannula 4 10/17/16 21:27 98.5 85 16 101/56 99 Nasal Cannula 4 10/17/16 21:15 98.5 80 16 104/57 99 Nasal Cannula 4 10/17/16 21:05 81 16 103/57 100 Nasal Cannula 4 10/17/16 20:58 98.4 81 16 104/58 99 Nasal Cannula 4 10/17/16 19:35 93 16 101/58 93 Nasal Cannula 4 10/17/16 17:23 19 95 Nasal Cannula 2 10/17/16 17:17 19 10/17/16 17:03 98.1 93 19 134/58 95 Result Diagram: 10/18/16 0541 10/18/16 0541 Imaging Last 48 hours Impressions Abdomen/Pelvis CT 10/17/16 1847 Signed Impressions: Service Date/Time: Monday, October 17, 2016 20:28 - CONCLUSION: 1. Basilar lung consolidation in the right lower lobe most characteristic of pneumonia or aspiration with small right pleural effusion. Moderate emphysema at the lung bases. 2. Pneumobilia. Gallbladder not visualized. Pancreas very atrophic. No free air or free fluid. No bowel obstruction. Chidi Diaz MD Chest X-Ray 10/17/16 1716 Signed Impressions: Service Date/Time: Monday, October 17, 2016 17:37 - CONCLUSION: 1. Severe bullous emphysema. Basilar scarring with questionable acute infiltrate right lung base. No prior study for comparison. Small right effusion versus scarring. Left-sided port or central line present with tip in superior vena cava. Chidi Diaz MD Objective Remarks GENERAL: This is a thin-appearing, well-developed patient, in no apparent distress. SKIN: No rashes, ecchymoses or lesions. Cool and dry. Port present in upper left chest without evidence of erythema or infection. EYES: Pupils equal round and reactive. No scleral injection or drainage, no scleral paleness CARDIOVASCULAR: Regular rate and rhythm without murmurs, gallops, or rubs. RESPIRATORY: Bibasilar rhonchi with crackles on the right side. Occasional expiratory wheezes GASTROINTESTINAL: Abdomen soft, non-tender, nondistended. No hepato-splenomegaly , or palpable masses. MUSCULOSKELETAL: Extremities without clubbing, cyanosis, or edema. NEUROLOGICAL: Awake and alert. Normal speech. Medications and IVs 10/18/16: Transfusion of 1 unit PRBC A/P Assessment and Plan Patient is a 65-year-old male with past medical history significant for pancreatic cancer with lung metastasis, COPD presenting due to bright red vomiting. Problem List: (1) GI bleed Status: Acute Plan: Likely upper GI bleed given hematemesis associated with right red blood per rectum GI has been consulted and has evaluated patient - Nothing by mouth after midnight (liquid diet until then) - GoLYTELY in preparation for EGD/colonoscopy tomorrow Patient transferred to the [facility] for close monitoring - Follow CBC every 6 hours - Transfuse as needed - Continue PPI with Protonix 40 mg IV twice a day - Avoid gastric irritating medications (2) Pancreatic cancer metastasized to lung Status: Acute Plan: Patient reports history of pancreatic cancer diagnosed in November 2014, now with lung metastasis. Patient is undergoing chemotherapy along with radiation therapy in [place]. He is currently taking a break from cancer treatments and will not miss any cancer treatments while in the hospital -Continue home Creon -Pain management with oxycodone 10 mg po Q6hrs, morphine prn breakthrough (3) Elevated LFTs Status: Acute Plan: Patient has known gallbladder dysfunction and pancreatic cancer Likely multifactorial, GI is involved - Hepatitis panel pending - Continue to monitor (4) FEN/PPX Status: Acute Plan: Fluids: Normal saline at 125 ML/HR Electrolytes: Monitor and replete as needed Nutrition: Liquid diet today, nothing by mouth after midnight for EGD/ colonoscopy in the morning DVT PPX: Contraindicated as patient currently has GI bleed GI PPX: Protonix 40 mg IV BID Chronic medical problems: Type 2 diabetes: Low-dose insulin sliding scale Hyperlipidemia: Pravastatin 40 mg po daily COPD: Daliresp, Spiriva, Symbicort, DuoNeb's prn SOB Depression: Continue Celexa Problem Qualifiers (1) GI bleed: Qualified Code: K92.0 - Gastrointestinal hemorrhage with hematemesis Davey Chaudhry MD Oct 18, 2016 11:49
[2016-10-18 13:04] LABS: HEMATOCRIT 28.6 % (39.0-51.0); REVIEW FLAG FINAL
[2016-10-18] MEDS ORDERED: PEG (High)/E-LYTE SOLN 4000 ML BTL PO ONE (16:00)
[2016-10-18 19:44] LABS: HEMATOCRIT 28.6 % (39.0-51.0); REVIEW FLAG FINAL
[2016-10-19] VITALS (9 sets, daily range): BP systolic 116–149; BP diastolic 60–84; PULSE 53–68; RESP 14–25; TEMP 97.7–98.6; O2SAT 90–99
[2016-10-19] MEDS: SODIUM CHLOR 0.9% 1000 ML INJ 1,000 ML IV SCH (03:58)
[2016-10-19] MEDS ORDERED: CHLORHEXIDINE GLUCONATE 2 % 1 PACK (2 CLOTHS)(taper/protocol) TOP SCH (04:00)
[2016-10-19] MEDS: INSULIN ASPART SUPPLEMENTAL SCALE SQ SCH ×3 (06:34→16:00)
[2016-10-19 07:20] LABS: HEMATOCRIT 29.5 % (39.0-51.0); REVIEW FLAG FINAL
[2016-10-19 07:52] LABS: BICARBONATE 29.3 MEQ/L (21.0-32.0); INDIRECT BILIRUBIN 0.5 MG/DL (0.0-0.8); POTASSIUM 3.4 MEQ/L (3.5-5.1); TOTAL BILIRUBIN ADULT 1.2 MG/DL (0.2-1.0)
[2016-10-19] MEDS: BUDESONIDE-FORMOTEROL 160/4.5 MCG INHALER INH SCH (08:22)
[2016-10-19] MEDS: LIPASE/PROTEASE/AMYLASE (24,000/76,000/120,000) CAP PO SCH ×3 (08:23→17:39)
[2016-10-19] MEDS: SODIUM CHLORIDE 0.9% FLUSH 5 ML FLUSH FLUSH SCH (08:23)
[2016-10-19] MEDS: CITALOPRAM HYDROBROMIDE 40 MG TAB PO SCH (08:23)
[2016-10-19] MEDS: TIOTROPIUM BROMIDE 18 MCG INH INH SCH (08:23)
[2016-10-19] MEDS: PRAVASTATIN SOD 40 MG TAB PO SCH (08:23)
[2016-10-19] MEDS: ROFLUMILAST 500 MCG TAB PO SCH (08:23)
[2016-10-19] MEDS: MULTIVITAMIN TAB PO SCH (08:23)
[2016-10-19] MEDS: PANTOPRAZOLE SODIUM 40 MG VIAL IV SCH (08:24)
[2016-10-19] MEDS ORDERED: POTASSIUM CHLORIDE 10 MEQ CONTROLLED RELEASE TAB PO ONE ×2 (09:00→14:00)
--- NOTE | 2016-10-19 09:15 | HHI.FPPN ---
Subjective Remarks Pt seen and examined this morning. Denies additional episodes of hematemesis, continues to have blood mixed with stool. Chest pain, shortness of breath, abdominal pain, leg pain. Family present at bedside. Anticipated going for EGD and Colonoscopy at 11:30 this morning. (Adry Sorto MD R2) Objective Vitals Vital Signs Date Time Temp Pulse Resp B/P Pulse Ox O2 Delivery O2 Flow Rate FiO2 10/19/16 09:05 95 Nasal Cannula 3.50 10/19/16 06:00 53 10/19/16 04:00 53 10/19/16 04:00 97.7 53 14 116/84 97 10/19/16 02:00 57 10/19/16 01:22 16 10/19/16 00:28 99 Nasal Cannula 3.50 10/19/16 00:00 97.8 59 25 149/68 99 10/19/16 00:00 59 10/18/16 22:00 61 10/18/16 20:00 66 10/18/16 20:00 98.3 64 27 122/66 92 10/18/16 16:03 98.6 64 20 122/56 94 10/18/16 15:10 95 Nasal Cannula 3.00 10/18/16 14:00 80 10/18/16 12:03 98.7 80 16 109/56 95 10/18/16 12:00 98.7 80 20 109/56 96 10/18/16 12:00 86 10/18/16 12:00 98.4 84 16 109/56 93 10/18/16 09:42 95 Nasal Cannula 4.00 10/18/16 09:23 59 16 123/78 97 Nasal Cannula 4 I/O 10/18/16 10/18/16 10/18/16 10/19/16 10/19/16 10/19/16 07:00 15:00 23:00 07:00 15:00 23:00 Intake Total 935 ml 960 ml 500 ml Output Total 400 ml 100 ml 200 ml Balance 535 ml 860 ml 300 ml Intake Oral 560 ml 960 ml 500 ml IV Total 375 ml Output Urine Total 400 ml 100 ml 200 ml # Voids 4 2 3 # Bowel Movements 1 1 2 4 (Adry Sorto MD R2) Result Diagram: 10/19/16 0642 10/19/16 0642 Objective Remarks GENERAL: This is a thin-appearing, well-developed patient, in no apparent distress. SKIN: No rashes, ecchymoses or lesions. Cool and dry. Port present in upper left chest without evidence of erythema or infection. Pt with jaundice. EYES: Pupils equal round and reactive. No scleral injection or drainage, no scleral paleness CARDIOVASCULAR: Regular rate and rhythm without murmurs, gallops, or rubs. RESPIRATORY: Bibasilar rhonchi with crackles on the right side. Occasional expiratory wheezes. GASTROINTESTINAL: Abdomen soft, non-tender, nondistended. No hepato-splenomegaly , or palpable masses. MUSCULOSKELETAL: Extremities without clubbing, cyanosis, or edema. NEUROLOGICAL: Awake and alert. Normal speech. (Adry Sorto MD R2) A/P Assessment and Plan Patient is a 65-year-old male with past medical history significant for pancreatic cancer with lung metastasis, COPD presenting due to bright red vomiting. Discharge Planning Anticipate discharge once GI bleed has resolved and pt has been cleared by GI. Likely 1-2 days. mercedez Chaudhry (Adry Sorto MD R2) Attending Attestation Patient examined and case discussed with resident physician I have read the above note and agree with the assessment/plan as discussed with me I was involved in all medical decision making for this patient EGD/colonoscopy performed today: Showed gastritis/duodenitis as well as internal hemorrhoids and one polyp No obvious areas of active bleeding Hemoglobin has been stable 24 hours Plan to discharge home with PPI treatment and close follow-up with GI as outpatient Davey Chaudhry M.D. (Davey Chaudhry MD) Problem List: (1) GI bleed Status: Acute Plan: Likely upper GI bleed given hematemesis associated with right red blood per rectum GI has been consulted and has evaluated patient -Anticipate colonoscopy and EGD this morning Patient transferred to the [facility] for close monitoring -H&H this morning increased to 10.2 and 29.5 respectively - Transfuse as needed - Continue PPI with Protonix 40 mg IV twice a day - Avoid gastric irritating medications (2) Pancreatic cancer metastasized to lung Status: Acute Plan: Patient reports history of pancreatic cancer diagnosed in November 2014, now with lung metastasis. Patient is undergoing chemotherapy along with radiation therapy in [place]. He is currently taking a break from cancer treatments and will not miss any cancer treatments while in the hospital -Continue home Creon -Pain management with oxycodone 10 mg po Q6hrs, morphine prn breakthrough (3) Elevated LFTs Status: Acute Plan: Patient has known gallbladder dysfunction and pancreatic cancer Likely multifactorial, GI is involved - Hepatitis panel negative - Continue to monitor (4) FEN/PPX Status: Acute Plan: Fluids: Normal saline at 125 ML/HR Electrolytes: Potassium low at 3.4, potassium chloride 40 mEq po 1, Monitor and replete as needed Nutrition: Patient is NPO in anticipation of EGD and colonoscopy later this morning DVT PPX: Contraindicated as patient currently has GI bleed GI PPX: Protonix 40 mg IV BID Chronic medical problems: Type 2 diabetes: Low-dose insulin sliding scale Hyperlipidemia: Pravastatin 40 mg po daily COPD: Daliresp, Spiriva, Symbicort, DuoNeb's prn SOB Depression: Continue Celexa (Adry Sorto MD R2) Problem Qualifiers (1) GI bleed: Qualified Code: K92.0 - Gastrointestinal hemorrhage with hematemesis Adry Sorto MD R2 Oct 19, 2016 09:15 Davey Chaudhry MD Oct 19, 2016 16:55
[2016-10-19] MEDS ORDERED: PROPOFOL 200 MG/20 ML AMP IV ONE (12:05)
[2016-10-19 16:08] LABS: HEMATOCRIT 28.4 % (39.0-51.0); REVIEW FLAG FINAL
[2016-10-19] MEDS ORDERED: PROT40TA PO (17:14)
--- NOTE | 2016-10-19 17:16 | HHI.DCPOC ---
Discharge Care Plan Diagnosis: (1) GI bleed (2) Elevated LFTs (3) Pancreatic cancer metastasized to lung Goals to Promote Your Health * To prevent worsening of your condition and complications * To maintain your health at the optimal level Directions to Meet Your Goals Take your medications as prescribed Follow your dietary instruction Follow activity as directed Keep your appointments as scheduled Take your immunizations and boosters as scheduled If your symptoms worsen call your PCP, if no PCP go to Urgent Care Center or Emergency Room Smoking is Dangerous to Your Health. Avoid second hand smoke Call the 24-hour hour crisis hotline for domestic abuse at Adry Sorto MD R2 Oct 19, 2016 17:16
== END 2016-10-19 19:55 | disposition home or self-care (01) | DRG 378 ==
LOC: NEPE 16:58 → NEDA 18:43 → NEDH 22:59 → HIMN 10-18 10:30
PROVIDERS: ADMIT Family Medicine; ATTEND Family Medicine
PROC: 30233N1 Transfusion of Nonautologous Red Blood Cells into Peripheral Vein, Percutaneous Approach (ICD-10-PCS; 2016-10-17)
PROC: 0DBP8ZX Excision of Rectum, Via Natural or Artificial Opening Endoscopic, Diagnostic (ICD-10-PCS; principal; 2016-10-18)
PROC: 0DJ08ZZ Inspection of Upper Intestinal Tract, Via Natural or Artificial Opening Endoscopic (ICD-10-PCS; 2016-10-19)
DX: K92.0 Hematemesis (principal); C78.00 Secondary malignant neoplasm of unspecified lung; K92.1 Melena; I95.9 Hypotension, unspecified; Z99.81 Dependence on supplemental oxygen; K20.9 Esophagitis, unspecified; K57.30 Diverticulosis of large intestine without perforation or abscess without bleeding; K62.1 Rectal polyp; K64.4 Residual hemorrhoidal skin tags; K64.8 Other hemorrhoids; J44.9 Chronic obstructive pulmonary disease, unspecified; E11.9 Type 2 diabetes mellitus without complications; Z85.07 Personal history of malignant neoplasm of pancreas; Z79.84 Long term (current) use of oral hypoglycemic drugs; E78.5 Hyperlipidemia, unspecified; Z87.891 Personal history of nicotine dependence; F32.9 Major depressive disorder, single episode, unspecified; Z83.3 Family history of diabetes mellitus; Z79.82 Long term (current) use of aspirin; R79.89 Other specified abnormal findings of blood chemistry
CPT/HCPCS: 36430; 71010; 74176; 80048; 80053; 80074; 80076; 81001; 82330; 82550; 83605; 83690; 83880; 84155; 84484; 85014; 85018; 85025; 85610; 85730; 86850; 86900; 86901; 86920; 87641; 88305; 93005; 96365; 96375; C9113; J2405; J7030; J7050; P9016

== ENCOUNTER → 2016-10-25 | Outpatient (CLI) | payer MEDICARE ==
[~2016-10-25] MED LIST: ADVA500A INH; CARA0.5C TOP; CELE40TA PO; GLUCTAB PO; MULT-207 PO; OMEP20TA PO; OXYC-395 PO; PANC3600 PO; PROT40TA PO; ROFL1TAB2 PO; SPIRCAP INH; XOPEAER4 INH; ZOCO20TA PO
[2016-10-25 15:06] LABS: AUTOMATED NEUTROPHIL # 5.2 TH/MM3 (1.8-7.7); BASOPHIL # 0.1 TH/MM3 (0-0.2); BASOPHIL % 1.2 % (0.0-2.0); EOSINOPHIL # 0.1 TH/MM3 (0-0.4); EOSINOPHIL % 1.2 % (0.0-4.0); HEMATOCRIT 34.1 % (39.0-51.0); HEMO FLAGS DIFF FINAL; LYMPH % 14.6 % (9.0-44.0); MEAN CELL VOLUME 82.5 FL (80.0-100.0); MEAN CORPUSCULAR HEMOGLOBIN 28.8 PG (27.0-34.0); MEAN CORPUSCULAR HGB CONC 34.9 % (32.0-36.0); MONO % 9.1 % (0.0-8.0); NEUT % 73.9 % (16.0-70.0); PLATELET COUNT 433 TH/MM3 (150-450); RED BLOOD COUNT 4.13 MIL/MM3 (4.50-5.90); RED CELL DISTRIBUTION WIDTH 20.2 % (11.6-17.2)
[2016-10-25 15:23] LABS: ALT (GPT) 42 U/L (12-78); ANION GAP 4 MEQ/L (5-15); AST (GOT) 19 U/L (15-37); BICARBONATE 30.8 MEQ/L (21.0-32.0); BLOOD UREA NITROGEN 15 MG/DL (7-18); CHLORIDE 102 MEQ/L (98-107); GLOMERULAR FILTRATION RATE 119 ML/MIN (>89); GLUCOSE,FASTING 108 MG/DL (74-99); POTASSIUM 4.7 MEQ/L (3.5-5.1); SODIUM (NA) 137 MEQ/L (136-145)
[2016-10-25 15:26] LABS: ALKALINE PHOSPHATASE 287 U/L (45-117); TOTAL BILIRUBIN ADULT 0.6 MG/DL (0.2-1.0)
== END ==
LOC: CLAB 14:25
DX: C34.91 Malignant neoplasm of unspecified part of right bronchus or lung (principal)
CPT/HCPCS: 36415; 80053; 85025